=== PATIENT | male | born 1955 | race Caucasian/White ===

== ENCOUNTER 2018-06-25 14:41 | Outpatient (CLI) | payer OTHER ==
--- NOTE | 2018-06-25 15:53 | RAD ---
PORTABLE AP CHEST RADIOGRAPH: Date: 06-25-18 History: Polyarthritis, unspecified. Baseline chest x-ray prior to starting medications to treat arth ritis. Comparison: 09-11-15 FINDINGS: Cardiac silhouette and pulmonary vasculature are within normal limits. The lungs remain clear. Vascul ar calcifications are seen in the thoracic aorta. Calcified mediastinal lymph nodes are again seen. N o other interval change. IMPRESSION: No acute cardiopulmonary process. POS: [facility]
== END 2018-06-25 14:42 | disposition home or self-care (01) ==
LOC: BICRAD 14:41
PROVIDERS: ATTEND Family Medicine
DX: R07.9 Chest pain, unspecified (principal)
CPT/HCPCS: 71045

== ENCOUNTER 2018-10-21 13:12 | Inpatient (IN) | payer OTHER ==
[2018-10-21 13:42] VITALS: BMI 26.4
[2018-10-21] MEDS ORDERED: HYDROcodone/Acetaminophen 5/325 mg Tablet PO PRN ×2 (13:44)
[2018-10-21] MEDS ORDERED: Acetaminophen 325 MG TAB PO PRN (13:44)
[2018-10-21] MEDS ORDERED: Ondansetron PF 4 MG/2 ML Vial IVP PRN (13:45)
[2018-10-21] MEDS ORDERED: Fleet Enema 133 ML BOT FS PRN (13:45)
[2018-10-21 14:03] LABS: #Basophils 0.1 thou/uL (0.0-0.2); #Eosinphils 0.2 thou/uL (0.0-0.7); #Lymphocytes 1.6 thou/uL (1.20-3.40); #Monocytes 0.7 thou/uL (0.11-0.59); #Neutrophils 4.2 thou/uL (1.40-6.50); %Basophils 0.8 % (0.0-1.0); %Eosinophils 2.3 % (0.0-10.0); %Lymphocytes 23.9 % (21.0-51.0); %Monocytes 10.2 % (0.0-10.0); %Neutrophils 62.7 % (42.0-75.0); Hemoglobin 13.6 g/dL (14.0-18.0); Mean Corpuscular HGB CONC 35.1 g/dL (32.0-36.0); Mean Corpuscular Hemoglobin 35.1 pg (27.0-31.0); Mean Corpuscular Volume 99.8 fL (78.0-98.0); Mean Platelet Volume 7.1 fL (7.4-10.4); Platelet Count 280 thou/uL (130-400); RBC Distribution Width 13.2 % (11.5-14.5); Red Blood Cell (RBC) Count 3.89 mill/uL (4.70-6.10); White Blood Cell (WBC) Count 6.7 thou/uL (4.8-10.8)
[2018-10-21 14:22] LABS: Anion Gap 12 mmol/L (10-20); BUN (Urea Nitrogen) 17 mg/dL (8.4-25.7); Calc. Creatinine Clearance 107 mL/min (70-130); Calcium 9.9 mg/dL (7.8-10.44); Carbon Dioxide 25 mmol/L (23-31); Chloride 108 mmol/L (98-107); Estimated GFR-MDRD Greater than 90; Glucose 93 mg/dL (80-115); Sodium 141 mmol/L (136-145)
[2018-10-21 14:26] LABS: Troponin I Less than 0.010 ng/mL (< 0.028)
[2018-10-21 18:19] LABS: Troponin I Less than 0.010 ng/mL (< 0.028)
[2018-10-21] MEDS: cloNIDine 0.1 MG TAB PO PRN (20:00)
[2018-10-21 22:17] LABS: Troponin I Less than 0.010 ng/mL (< 0.028)
[2018-10-21] MEDS ORDERED: Metoprolol Tartrate 50 MG TAB PO SCH (23:00)
[2018-10-22] MEDS: cloNIDine 0.1 MG TAB PO PRN (01:51)
[2018-10-22] MEDS: Sodium Chloride 0.9% 1,000 ML IV SCH ×5 (06:18→21:46)
[2018-10-22] MEDS ORDERED: Fentanyl 100 MCG/2 ML VIAL ONE (07:36)
[2018-10-22] MEDS ORDERED: Midazolam HCl 2 mg/2 ml Vial ONE (07:36)
[2018-10-22] MEDS ORDERED: Heparin 10,000 UNITS/1 ML VIAL ONE (07:58)
[2018-10-22] MEDS ORDERED: TICAGRELOR 90 MG TABLET ONE (08:13)
[2018-10-22] MEDS ORDERED: Nitroglycerin 100MG/250ML BOT 250 ML ONE (08:13)
[2018-10-22] MEDS ORDERED: Iopamidol 370 76% 50 ML VIAL FS ONE (08:48)
[2018-10-22] MEDS ORDERED: Iopamidol 370 76% 100 ML VIAL ONE (08:48)
[2018-10-22] MEDS ORDERED: Nitroglycerin 0.4 MG TAB (25 Tab Bottle) SL PRN (09:00)
[2018-10-22] MEDS ORDERED: Morphine 2 MG/ML SYRINGE SLOW IVP PRN (09:00)
[2018-10-22] MEDS ORDERED: Aspirin 81 mg Enteric Coated Tablet PO SCH (09:15)
[2018-10-22] MEDS ORDERED: hydrALAZINE 20 MG/ML VIAL ONE (10:25)
[2018-10-22] MEDS: TICAGRELOR 90 MG TABLET PO SCH ×2 (12:19→21:41)
[2018-10-22] MEDS ORDERED: Lisinopril 2.5 MG TAB PO SCH (13:00)
[2018-10-22] MEDS ORDERED: hydrALAZINE 20 MG/ML VIAL SLOW IVP PRN (14:03)
[2018-10-22] MEDS ORDERED: Atorvastatin Calcium 20 MG TAB PO SCH (21:00)
[2018-10-23 05:09] LABS: #Eosinphils 0.2 thou/uL (0.0-0.7); #Lymphocytes 1.4 thou/uL (1.20-3.40); #Monocytes 0.7 thou/uL (0.11-0.59); %Basophils 0.6 % (0.0-1.0); %Eosinophils 2.7 % (0.0-10.0); %Lymphocytes 22.4 % (21.0-51.0); %Monocytes 11.2 % (0.0-10.0); %Neutrophils 63.1 % (42.0-75.0); Hemoglobin 12.8 g/dL (14.0-18.0); Mean Corpuscular HGB CONC 34.4 g/dL (32.0-36.0); Mean Corpuscular Hemoglobin 34.8 pg (27.0-31.0); Mean Platelet Volume 7.5 fL (7.4-10.4); Platelet Count 255 thou/uL (130-400); RBC Distribution Width 13.1 % (11.5-14.5); Red Blood Cell (RBC) Count 3.66 mill/uL (4.70-6.10); White Blood Cell (WBC) Count 6.4 thou/uL (4.8-10.8)
[2018-10-23 05:27] LABS: ALT (SGPT) 11 U/L (8-55); AST (SGOT) 11 U/L (5-34); Albumin 3.4 g/dL (3.4-4.8); Alkaline Phosphatase 71 U/L (40-150); Anion Gap 10 mmol/L (10-20); BUN (Urea Nitrogen) 14 mg/dL (8.4-25.7); Bilirubin, Total 0.7 mg/dL (0.2-1.2); Calc. Creatinine Clearance 91 mL/min (70-130); Calcium 9.1 mg/dL (7.8-10.44); Carbon Dioxide 22 mmol/L (23-31); Chloride 110 mmol/L (98-107); Estimated GFR-MDRD 79; Globulin 2.7 g/dL (2.4-3.5); Glucose 97 mg/dL (80-115); Potassium 3.6 mmol/L (3.5-5.1); Protein, Total 6.1 g/dL (5.8-8.1); Sodium 138 mmol/L (136-145)
[2018-10-23] MEDS: TICAGRELOR 90 MG TABLET PO SCH (08:50)
[2018-10-23] MEDS ORDERED: Aspirin 81 mg Enteric Coated Tablet PO SCH (09:00)
[2018-10-23] MEDS ORDERED: OSTEO BI-FLEX PO SCH (09:00)
[2018-10-23] MEDS ORDERED: Lisinopril 2.5 MG TAB PO SCH (09:00)
[2018-10-23 11:58] VITALS: TEMP 98.2
[2018-10-23] MEDS: Sodium Chloride 0.9% 1,000 ML IV SCH ×2 (12:20→12:28)
[2018-10-23 13:09] VITALS: BP 168/62
[2018-10-23] MEDS ORDERED: Carvedilol 3.125 MG TAB PO SCH (17:00)
--- NOTE | 2018-10-23 17:22 | DIS ---
DATE OF ADMISSION: 10/22/2018 DATE OF DISCHARGE: 10/23/2018 PRIMARY DIAGNOSES/DISCHARGE DIAGNOSES: 1. Unstable angina. 2. Coronary artery disease. 3. Peripheral vascular disease. PROCEDURES PERFORMED: 1. Left heart catheterization. 2. Left ventriculogram. 3. Percutaneous coronary angiogram to the left femoral approach. 4. Percutaneous coronary intervention with drug-eluting stent to the right coronary artery. 5. Selective abdominal angiography. 6. Selective left common femoral angiography with runoff. 7. Selective right common femoral angiography with runoffs. HOSPITAL COURSE: Mr. Leonard is a pleasant 63-year-old white gentleman, who comes to the hospital, admitted by Dr. Mulligan from his office for ongoing episodes of chest pain at rest that would wake him up from sleep. He was admitted and planned to do heart catheterization. His symptoms were highly consistent with angina. He was taken to the catheterization lab the next morning and he was found to have severe lesions on his right coronary artery, two spots. He received two drug coated stents. He did very well. He also had abdominal angiography and bilateral lower extremity runoffs. He was found to have severe right SFA disease. He is having claudication in his right leg. He has had previous stenting on bilateral iliacs by Dr. Troncoso in the past. He is doing well. Today, I evaluated him. He denies any chest pain, tightness, or pressure. No other issues. Continues to have pain on the right leg, which will be addressed in the future. Otherwise, he tolerated all his medications without issues. Discharge medications were reviewed with him. He had the same discharge medications except the addition of; 1. Aspirin 81. 2. Atorvastatin 20 mg at bedtime. 3. Carvedilol 3.125 b.i.d. 4. Lisinopril 2.5 mg a day. 5. Brilinta 90 mg b.i.d. 6. Sublingual nitroglycerin p.r.n. for chest pain. 7. Wellbutrin was given as well for smoking cessation. We will follow up with Dr. Mulligan in 2 to 4 weeks. Over 30 minutes was spent at bedside counseling for smoking cessation and for discharge instructions. Dictation. Job ID: [id number]
== END 2018-10-23 15:19 | disposition home or self-care (01) | DRG 247 ==
LOC: 2SW 13:12 → OBSVTOIN 10-22 09:00
PROVIDERS: ADMIT Internal Medicine Cardiovascular Disease; ATTEND Internal Medicine Cardiovascular Disease
PROC: 027035Z Dilation of Coronary Artery, One Artery with Two Drug-eluting Intraluminal Devices, Percutaneous Approach (ICD-10-PCS; principal; 2018-10-22)
PROC: 4A023N7 Measurement of Cardiac Sampling and Pressure, Left Heart, Percutaneous Approach (ICD-10-PCS; 2018-10-22)
PROC: B2111ZZ Fluoroscopy of Multiple Coronary Arteries using Low Osmolar Contrast (ICD-10-PCS; 2018-10-22)
PROC: B2151ZZ Fluoroscopy of Left Heart using Low Osmolar Contrast (ICD-10-PCS; 2018-10-22)
DX: I25.110 Atherosclerotic heart disease of native coronary artery with unstable angina pectoris (principal); K21.9 Gastro-esophageal reflux disease without esophagitis; E78.00 Pure hypercholesterolemia, unspecified; F17.210 Nicotine dependence, cigarettes, uncomplicated
CPT/HCPCS: 36415; 75630; 75716; 80048; 80053; 84484; 85025; 85347; 92928; 92978; 93005; 93010; 93458; 99152; 99153; C1725; C1769; C1874; C1887; C9600; J0360; J1644; J2250; J3010; Q9967

== ENCOUNTER 2018-11-23 06:08 | Day surgery (SDC) | payer OTHER ==
[2018-11-20 12:47] VITALS: BMI 27.3
[2018-11-23 07:15] LABS: Hemoglobin 10.6 g/dL (14.0-18.0)
[2018-11-23 07:29] LABS: Anion Gap 12 mmol/L (10-20); BUN (Urea Nitrogen) 21 mg/dL (8.4-25.7); Calc. Creatinine Clearance 94 mL/min (70-130); Calcium 9.4 mg/dL (7.8-10.44); Carbon Dioxide 26 mmol/L (23-31); Chloride 107 mmol/L (98-107); Estimated GFR-MDRD 82; Glucose 97 mg/dL (80-115); Potassium 3.6 mmol/L (3.5-5.1); Sodium 141 mmol/L (136-145)
[2018-11-23] MEDS ORDERED: Fentanyl 100 MCG/2 ML VIAL ONE (07:51)
[2018-11-23] MEDS ORDERED: Midazolam HCl 2 mg/2 ml Vial ONE (07:51)
[2018-11-23] MEDS ORDERED: Heparin 10,000 UNITS/1 ML VIAL ONE ×2 (08:13→09:15)
[2018-11-23] MEDS ORDERED: Nitroglycerin 100MG/250ML BOT 0 ML ONE (08:14)
[2018-11-23] MEDS ORDERED: Verapamil 5 MG/2 ML VIAL ONE (08:14)
[2018-11-23] MEDS ORDERED: Nitroglycerin 50 MG/250 ML BOT 250 ML ONE (08:16)
[2018-11-23] MEDS ORDERED: hydrALAZINE 20 MG/ML VIAL ONE (09:12)
[2018-11-23] MEDS ORDERED: Iopamidol 370 76% 100 ML VIAL ONE (10:35)
[2018-11-23] MEDS ORDERED: Iopamidol 370 76% 50 ML VIAL FS ONE (10:35)
--- NOTE | 2018-11-23 10:40 | OP ---
DATE OF PROCEDURE: 11/23/2018 PREPROCEDURE DIAGNOSIS: Claudication. POSTPROCEDURE DIAGNOSIS: Severe peripheral vascular disease. PROCEDURE PERFORMED: 1. Aortogram. 2. Bilateral aortofemoral runoff. 3. Successful atherectomy and percutaneous transluminal angioplasty to the right superficial femoral artery with a 1.5 Diamondback classic atherectomy followed by 4.0 x 40 mm Conway balloon catheter. 4. Successful percutaneous transluminal angioplasty stent placement with an 8 x 60 mm Innova stent, postdilated with a 7 x 40 mm Conway balloon catheter. COMPLICATIONS: None. ESTIMATED BLOOD LOSS: Less than 10 mL. TOTAL SEDATION TIME: 1 hour. DESCRIPTION OF PROCEDURE: The patient was draped and prepped in sterile fashion. Access was then obtained in the left femoral artery under ultrasound guidance. Aortogram was performed with a Contra catheter. The catheter was placed successfully in the contralateral segment. The catheter was exchanged for a Erwin catheter given difficulty on placement into the common femoral artery. FINDINGS: Aorta has no significant stenosis present. Right lower extremity - the right common iliac artery has a short stent placed in the mid distal region. There appears to be 70% stenosis in the external iliac artery on right. The common femoral artery is free of significant disease. The SFA has a focal lesion noted in the mid to distal region estimated at 99%. There were three vessel runoff to the foot with diffuse disease present. Left lower extremity - common iliac, external, and common femoral artery have no significant disease. The SFA has less than 50% stenosis. There is a stent present in the common iliac on left. INTERVENTIONAL PROCEDURE: The 5-Bermudian sheath was exchanged for a 6-Bermudian Destination sheath. This was placed with some difficulty into the contralateral segment. The Wholey wire was exchanged for a ViperWire via a Erwin catheter. Heparin was used for anticoagulation. Three passes were performed successfully with the 1.5 Diamondback classic catheter. This was then removed and replaced with a 4 x 40 mm Conway balloon catheter. One inflation performed successfully. There was excellent angiographic result at the end of the study. When assessing the lesion present in the external iliac artery, there was a 40 to 50 mm gradient present. This was felt to be significant. No significant calcification present. A 6 x 20 mm balloon catheter was then placed over the area of interest and inflated to nominal pressure. This was then removed and replaced with an 8 x 60 mm Innova self-expanding stent. It was deployed successfully distally and in the mid region. The proximal portion did not appear deployed. It appeared to be within the tip of the sheath. The sheath was carefully retracted and the proximally portion of the stent was deployed successfully. The catheter was then removed and replaced with a 7 x 40 mm Conway balloon catheter. Multiple inflations in the stented region performed both proximally and distally. A Erwin catheter was placed distally. There was no significant gradient present. There was excellent angiographic result at the end of the study with excellent distal flow. Job ID: [id number] [facility]
== END 2018-11-23 16:18 | disposition home or self-care (01) ==
LOC: CCL 06:08
PROVIDERS: ATTEND Internal Medicine Cardiovascular Disease
PROC: 047K3DZ Dilation of Right Femoral Artery with Intraluminal Device, Percutaneous Approach (ICD-10-PCS; principal; 2018-11-23)
DX: I70.213 Atherosclerosis of native arteries of extremities with intermittent claudication, bilateral legs (principal); I25.10 Atherosclerotic heart disease of native coronary artery without angina pectoris; K58.9 Irritable bowel syndrome, unspecified; K21.9 Gastro-esophageal reflux disease without esophagitis; E78.5 Hyperlipidemia, unspecified; Z87.891 Personal history of nicotine dependence; Z79.02 Long term (current) use of antithrombotics/antiplatelets; Z79.82 Long term (current) use of aspirin; Z79.899 Other long term (current) drug therapy; Z88.1 Allergy status to other antibiotic agents; Z95.5 Presence of coronary angioplasty implant and graft
CPT/HCPCS: 37221; 37225; 76942; 80048; 85014; 85018; 85347; 99152; 99153; C1724; C1725; C1769; C1887; J0360; J1644; J2250; J3010; Q9967

== ENCOUNTER 2019-06-29 21:02 | Emergency (ER) | payer OTHER ==
[~2019-06-29 21:02] MED LIST: Iopamidol-370 76% 500 ML 1 ML ONE
[2019-06-29 22:03] LABS: PTT 28.7 SEC (22.9-36.1); Prothrombin Time 12.6 SEC (12.0-14.7)
[2019-06-29 22:45] LABS: ALT (SGPT) 18 U/L (8-55); AST (SGOT) 14 U/L (5-34); Albumin 4.3 g/dL (3.4-4.8); Alkaline Phosphatase 82 U/L (40-110); Anion Gap 13 mmol/L (10-20); BUN (Urea Nitrogen) 23 mg/dL (8.4-25.7); Bilirubin, Total 0.8 mg/dL (0.2-1.2); Calc. Creatinine Clearance 0 mL/min (70-130); Calcium 9.5 mg/dL (7.8-10.44); Carbon Dioxide 26 mmol/L (23-31); Chloride 102 mmol/L (98-107); Estimated GFR-MDRD 53; Globulin 3.1 g/dL (2.4-3.5); Glucose 121 mg/dL (80-115); Potassium 3.3 mmol/L (3.5-5.1); Protein, Total 7.4 g/dL (5.8-8.1); Sodium 138 mmol/L (136-145)
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
[2019-06-29] MEDS ORDERED: HYDROcodone/Acetaminophen 10/325 mg Tablet ONE (23:50)
== END 2019-06-29 23:58 | disposition home or self-care (01) ==
LOC: ERS 21:02
DX: R10.31 Right lower quadrant pain (principal); E78.5 Hyperlipidemia, unspecified; I10 Essential (primary) hypertension; Z87.891 Personal history of nicotine dependence; Z79.82 Long term (current) use of aspirin; Z79.01 Long term (current) use of anticoagulants; Z79.899 Other long term (current) drug therapy; Z79.52 Long term (current) use of systemic steroids; Z95.5 Presence of coronary angioplasty implant and graft
CPT/HCPCS: 74177; 80053; 85610; 85730; Q9967

== ENCOUNTER 2023-02-07 11:49 | Observation (INO) | payer MEDICARE ==
[~2023-02-07 11:49] MED LIST changes: -Iopamidol-370 76% 500 ML 1 ML ONE; +Iopamidol-370 76% 500 ML MDV (1 ML CHARGE) ONE
[2023-02-07 12:42] VITALS: BMI 30.4
[2023-02-07] MEDS ORDERED: Nicotine 14 MG PATCH TD PRN (14:44)
[2023-02-07] MEDS ORDERED: Acetaminophen 325 MG TAB PO PRN (15:09)
[2023-02-07 16:36] LABS: #Eosinphils 0.1 thou/uL (0.0-0.7); #Monocytes 1.1 thou/uL (0.11-0.59); #Neutrophils 6.4 thou/uL (1.40-6.50); %Basophils 0.5 % (0.0-1.0); %Eosinophils 0.8 % (0.0-10.0); %Lymphocytes 10.9 % (21.0-51.0); %Monocytes 12.5 % (0.0-10.0); %Neutrophils 74.5 % (42.0-75.0); Hematocrit 43.2 % (42.0-52.0); Hemoglobin 14.9 g/dL (14.0-18.0); Mean Corpuscular HGB CONC 34.5 g/dL (32.0-36.0); Mean Corpuscular Hemoglobin 35.1 pg (27.0-31.0); Mean Corpuscular Volume 101.6 fl (78.0-98.0); Mean Platelet Volume 9.1 fL (7.4-10.4); Platelet Count 216 10x3/uL (130-400); Red Blood Cell (RBC) Count 4.25 mill/uL (4.70-6.10); White Blood Cell (WBC) Count 8.6 10x3/uL (4.8-10.8)
[2023-02-07 16:59] LABS: ALT (SGPT) 13 U/L (8-55); AST (SGOT) 17 U/L (5-34); Albumin 3.9 g/dL (3.4-4.8); Alkaline Phosphatase 70 U/L (40-110); Anion Gap 14 mmol/L (10-20); BUN (Urea Nitrogen) 10 mg/dL (8.4-25.7); BUN/Creatinine Ratio 9.26; Bilirubin, Total 0.8 mg/dL (0.2-1.2); Calc. Creatinine Clearance 85 mL/min (70-130); Calcium 8.8 mg/dL (7.8-10.44); Carbon Dioxide 20 mmol/L (23-31); Chloride 102 mmol/L (98-107); Estimated GFR 75; Globulin 3.2 g/dL (2.4-3.5); Glucose 90 mg/dL (80-115); Phosphorus 2.9 mg/dL (2.3-4.7); Potassium 3.8 mmol/L (3.5-5.1); Protein, Total 7.1 g/dL (5.8-8.1); Sodium 132 mmol/L (136-145)
[2023-02-07] MEDS ORDERED: Losartan 25 MG TAB PO SCH (17:45)
[2023-02-07] MEDS ORDERED: Rosuvastatin 20 MG TAB PO SCH (21:00)
[2023-02-08 06:46] LABS: #Eosinphils 0.2 thou/uL (0.0-0.7); #Neutrophils 5.1 thou/uL (1.40-6.50); %Basophils 0.4 % (0.0-1.0); %Eosinophils 2.5 % (0.0-10.0); %Lymphocytes 11.2 % (21.0-51.0); %Monocytes 13.8 % (0.0-10.0); %Neutrophils 71.4 % (42.0-75.0); Hematocrit 38.9 % (42.0-52.0); Hemoglobin 13.3 g/dL (14.0-18.0); Mean Corpuscular HGB CONC 34.2 g/dL (32.0-36.0); Mean Corpuscular Hemoglobin 34.5 pg (27.0-31.0); Mean Corpuscular Volume 100.8 fl (78.0-98.0); Mean Platelet Volume 9.5 fL (7.4-10.4); Platelet Count 226 10x3/uL (130-400); RBC Distribution Width 16.9 % (11.5-14.5); Red Blood Cell (RBC) Count 3.86 mill/uL (4.70-6.10); White Blood Cell (WBC) Count 7.2 10x3/uL (4.8-10.8)
[2023-02-08 07:07] LABS: Anion Gap 12 mmol/L (10-20); BUN (Urea Nitrogen) 9 mg/dL (8.4-25.7); Calc. Creatinine Clearance 91 mL/min (70-130); Calcium 8.7 mg/dL (7.8-10.44); Carbon Dioxide 24 mmol/L (23-31); Chloride 101 mmol/L (98-107); Estimated GFR 82; Glucose 101 mg/dL (80-115); Potassium 3.5 mmol/L (3.5-5.1); Sodium 133 mmol/L (136-145)
[2023-02-08 08:03] VITALS: TEMP 98.4
[2023-02-08] MEDS ORDERED: Sodium Chloride 0.9% 500 ML IV SCH (08:15)
[2023-02-08] MEDS ORDERED: Losartan 25 MG TAB PO SCH (09:00)
[2023-02-08] MEDS ORDERED: cefTRIAXone\\ROCEPHIN 1 GM in Sodium Chloride 0.9% 100 ML IVPB SCH (09:00)
[2023-02-08] MEDS ORDERED: Azithromycin 500 MG in Sodium Chloride 0.9% 250 ML 250 ML IVPB SCH (09:00)
[2023-02-08] MEDS ORDERED: Tamsulosin HCl 0.4 MG CAP PO SCH (09:00)
[2023-02-08] MEDS ORDERED: Aspirin Chewable 81 MG TAB PO SCH (09:00)
[2023-02-08] MEDS ORDERED: Hydrochlorothiazide 25 MG TAB PO SCH (09:00)
[2023-02-08 11:59] VITALS: BP 165/79
== END 2023-02-08 17:42 | disposition home or self-care (01) ==
LOC: T4-A 12:36
PROVIDERS: ADMIT Internal Medicine; ATTEND Internal Medicine
DX: R50.9 Fever, unspecified (principal); I25.10 Atherosclerotic heart disease of native coronary artery without angina pectoris; I73.9 Peripheral vascular disease, unspecified; G47.33 Obstructive sleep apnea (adult) (pediatric); I10 Essential (primary) hypertension; E78.5 Hyperlipidemia, unspecified; J43.9 Emphysema, unspecified; J21.9 Acute bronchiolitis, unspecified; Z88.1 Allergy status to other antibiotic agents; Z98.890 Other specified postprocedural states; Z79.82 Long term (current) use of aspirin; Z79.899 Other long term (current) drug therapy
CPT/HCPCS: 70486; 70491; 71260; 80048; 80053; 80069; 85025 ×2; 85652; 86140; 96374; 96375; G0378 ×2; J0456; 36415; J0696; J3490; J7030; J7050; Q9967

== ENCOUNTER 2023-04-22 14:32 | Outpatient (CLI) | payer MEDICARE ==
[2023-04-22 16:03] LABS: Hematocrit 41.2 % (38.8-50.0); Hemoglobin 13.9 g/dL (13.5-17.5); Mean Corpuscular HGB CONC 33.7 g/dL (32.0-36.0); Mean Corpuscular Hemoglobin 33.7 pg (27.0-33.0); Mean Corpuscular Volume 99.8 fl (81.2-95.1); Mean Platelet Volume 9.6 fl (7.4-10.4); Platelet Count 266 10x3/uL (150-450); RBC Distribution Width 15.6 % (11.5-14.5); Red Blood Cell (RBC) Count 4.13 10x6/uL (4.32-5.72); White Blood Cell (WBC) Count 8.6 10x3/uL (3.5-10.5)
[2023-04-22 16:11] LABS: Anion Gap 16 mmol/L (10-20); BUN (Urea Nitrogen) 15 mg/dL (8.4-25.7); Calc. Creatinine Clearance 0 mL/min (70-130); Calcium 9.3 mg/dL (7.8-10.44); Carbon Dioxide 23 mmol/L (23-31); Chloride 104 mmol/L (98-107); Estimated GFR 60; Glucose 169 mg/dL (80-115); Potassium 3.5 mmol/L (3.5-5.1); Sodium 139 mmol/L (136-145)
== END 2023-04-22 14:33 | disposition home or self-care (01) ==
LOC: LABBT 14:32
PROVIDERS: ATTEND Otolaryngology Plastic Surgery within the Head & Neck
DX: Z01.818 Encounter for other preprocedural examination (principal); J32.0 Chronic maxillary sinusitis; J32.1 Chronic frontal sinusitis; J32.2 Chronic ethmoidal sinusitis; J34.3 Hypertrophy of nasal turbinates; J34.2 Deviated nasal septum
CPT/HCPCS: 80048; 85027; 93005; 93010

== ENCOUNTER 2023-04-23 07:41 | Day surgery (SDC) | payer MEDICARE ==
[2023-04-22 15:14] VITALS: BMI 30.4
[2023-04-23] MEDS ORDERED: Oxymetazoline HCl 0.05% (30 ML BOT) ONE (08:24)
[2023-04-23] MEDS ORDERED: Lidocaine 1% (PF) 30 ML VIAL ONE (09:12)
[2023-04-23] MEDS ORDERED: Famotidine/PF 20 mg/2ml Vial ONE (09:54)
[2023-04-23] MEDS ORDERED: fentaNYL PF 100 MCG/2 ML SYRINGE ONE (09:54)
[2023-04-23] MEDS ORDERED: fentaNYL 50 mcg/mL 1 mL Vial ONE (09:54)
[2023-04-23] MEDS ORDERED: Glycopyrrolate 0.2 MG/ML 5 ML SYRINGE ONE (10:14)
[2023-04-23] MEDS ORDERED: Dexamethasone 20 MG/5 ML VIAL ONE (10:14)
[2023-04-23] MEDS ORDERED: PROPOFOL 200 MG/20 ML VIAL ONE (10:14)
[2023-04-23] MEDS ORDERED: Metoprolol Tartrate 5 MG/5 ML VIAL ONE (10:14)
[2023-04-23] MEDS ORDERED: PHENYLEPHRINE-NS 100 MCG/ML 10 ML SYRINGE ONE (10:14)
[2023-04-23] MEDS ORDERED: Lidocaine 1% PF 5 ML VIAL ONE (10:14)
[2023-04-23] MEDS ORDERED: Succinylcholine 200 MG/10 ml SYRINGE FS ONE (10:14)
[2023-04-23] MEDS ORDERED: Ketorolac Tromethamine 30 MG/ML VIAL ONE (10:14)
[2023-04-23] MEDS ORDERED: Ondansetron PF 4 MG/2 ML Vial ONE (10:14)
[2023-04-23] MEDS ORDERED: methylPREDNISolone Acetate 40 mg/ml Vial ONE (10:41)
== END 2023-04-23 14:48 | disposition home or self-care (01) ==
LOC: SDC 07:41
PROVIDERS: ATTEND Otolaryngology Plastic Surgery within the Head & Neck
PROC: 09BV8ZZ Excision of Left Ethmoid Sinus, Via Natural or Artificial Opening Endoscopic (ICD-10-PCS; principal; 2023-04-23)
PROC: 09BQ8ZZ Excision of Right Maxillary Sinus, Via Natural or Artificial Opening Endoscopic (ICD-10-PCS; 2023-04-23)
PROC: 09BR8ZZ Excision of Left Maxillary Sinus, Via Natural or Artificial Opening Endoscopic (ICD-10-PCS; 2023-04-23)
PROC: 09BS8ZZ Excision of Right Frontal Sinus, Via Natural or Artificial Opening Endoscopic (ICD-10-PCS; 2023-04-23)
PROC: 09BT8ZZ Excision of Left Frontal Sinus, Via Natural or Artificial Opening Endoscopic (ICD-10-PCS; 2023-04-23)
PROC: 09BU8ZZ Excision of Right Ethmoid Sinus, Via Natural or Artificial Opening Endoscopic (ICD-10-PCS; 2023-04-23)
PROC: 09BL8ZZ Excision of Nasal Turbinate, Via Natural or Artificial Opening Endoscopic (ICD-10-PCS; 2023-04-23)
PROC: 09BL8ZZ Excision of Nasal Turbinate, Via Natural or Artificial Opening Endoscopic (ICD-10-PCS; 2023-04-23)
PROC: 0CBN0ZZ Excision of Uvula, Open Approach (ICD-10-PCS; 2023-04-23)
DX: J34.2 Deviated nasal septum (principal); J34.3 Hypertrophy of nasal turbinates; J32.8 Other chronic sinusitis; D10.39 Benign neoplasm of other parts of mouth; K13.79 Other lesions of oral mucosa; I10 Essential (primary) hypertension; E78.00 Pure hypercholesterolemia, unspecified; Z88.1 Allergy status to other antibiotic agents; M19.90 Unspecified osteoarthritis, unspecified site; Z79.899 Other long term (current) drug therapy
CPT/HCPCS: 30140; 31240; 31253; 31256; 42140; J3010; 88302; J1030; J2001; S0028

== ENCOUNTER 2023-07-15 16:00 | Outpatient (CLI) | payer MEDICARE | END 2023-07-15 16:01 | disposition home or self-care (01) | LOC: SLEEPLAB 16:00 | PROVIDERS: ATTEND Internal Medicine Critical Care Medicine | DX: G47.33 Obstructive sleep apnea (adult) (pediatric) (principal); I51.89 Other ill-defined heart diseases; R09.89 Other specified symptoms and signs involving the circulatory and respiratory systems; R53.83 Other fatigue; G47.10 Hypersomnia, unspecified | CPT/HCPCS: 95800 ==

== ENCOUNTER 2024-02-20 10:12 | Outpatient (CLI) | payer MEDICARE | END 2024-02-20 10:13 | disposition home or self-care (01) | LOC: RAD 10:12 | PROVIDERS: ATTEND Internal Medicine Critical Care Medicine | DX: R06.00 Dyspnea, unspecified (principal); I51.7 Cardiomegaly; J98.4 Other disorders of lung | CPT/HCPCS: 71046 ==

== ENCOUNTER 2024-06-09 07:45 | Day surgery (SDC) | payer MEDICARE | END 2024-06-09 08:45 | disposition home or self-care (01) | LOC: ULT 07:45 | PROVIDERS: ATTEND Physician Assistant Medical | DX: R14.0 Abdominal distension (gaseous) (principal); Z53.9 Procedure and treatment not carried out, unspecified reason; F10.90 Alcohol use, unspecified, uncomplicated; K21.9 Gastro-esophageal reflux disease without esophagitis; J44.9 Chronic obstructive pulmonary disease, unspecified; I11.0 Hypertensive heart disease with heart failure; I50.32 Chronic diastolic (congestive) heart failure; I73.9 Peripheral vascular disease, unspecified; I25.10 Atherosclerotic heart disease of native coronary artery without angina pectoris; F17.210 Nicotine dependence, cigarettes, uncomplicated; R63.5 Abnormal weight gain; E78.00 Pure hypercholesterolemia, unspecified; K42.9 Umbilical hernia without obstruction or gangrene; Z86.0100 Personal history of colon polyps, unspecified; Z79.82 Long term (current) use of aspirin; Z79.899 Other long term (current) drug therapy | CPT/HCPCS: 76705 ==

== ENCOUNTER 2024-06-28 13:56 | Outpatient (CLI) | payer MEDICARE, BC ==
[~2024-06-28 13:56] MED LIST changes: -Iopamidol-370 76% 500 ML MDV (1 ML CHARGE) ONE; +Magnevist 469MG/ML 20 ML VIAL ONE
== END 2024-06-28 13:57 | disposition home or self-care (01) ==
LOC: MRI 13:56
PROVIDERS: ATTEND Internal Medicine Gastroenterology
DX: R14.0 Abdominal distension (gaseous) (principal); D64.9 Anemia, unspecified; F10.90 Alcohol use, unspecified, uncomplicated; K76.0 Fatty (change of) liver, not elsewhere classified
CPT/HCPCS: 36415; 74183; 82565

== ENCOUNTER 2024-08-04 05:43 | Day surgery (SDC) | payer MEDICARE, BC ==
[2024-08-03 13:52] VITALS: BMI 30.4
[2024-08-04] MEDS ORDERED: PROPOFOL 40 ML ONE (07:07)
[2024-08-04] MEDS ORDERED: Lidocaine 1% PF 5 ML VIAL ONE (07:09)
[2024-08-04] MEDS ORDERED: Glycopyrrolate 0.2 MG/ML 5 ML SYRINGE ONE (08:22)
== END 2024-08-04 10:40 | disposition home or self-care (01) ==
LOC: SDC 05:43
PROVIDERS: ATTEND Internal Medicine Gastroenterology
PROC: 0DB98ZX Excision of Duodenum, Via Natural or Artificial Opening Endoscopic, Diagnostic (ICD-10-PCS; principal; 2024-08-04)
PROC: 0DBE8ZX Excision of Large Intestine, Via Natural or Artificial Opening Endoscopic, Diagnostic (ICD-10-PCS; 2024-08-04)
PROC: 0DB48ZX Excision of Esophagogastric Junction, Via Natural or Artificial Opening Endoscopic, Diagnostic (ICD-10-PCS; 2024-08-04)
PROC: 0DB68ZX Excision of Stomach, Via Natural or Artificial Opening Endoscopic, Diagnostic (ICD-10-PCS; 2024-08-04)
DX: K21.00 Gastro-esophageal reflux disease with esophagitis, without bleeding (principal); K29.70 Gastritis, unspecified, without bleeding; K31.A0 Gastric intestinal metaplasia, unspecified; K31.89 Other diseases of stomach and duodenum; K57.30 Diverticulosis of large intestine without perforation or abscess without bleeding; K70.0 Alcoholic fatty liver; I11.0 Hypertensive heart disease with heart failure; I50.30 Unspecified diastolic (congestive) heart failure; I25.10 Atherosclerotic heart disease of native coronary artery without angina pectoris; I73.9 Peripheral vascular disease, unspecified; J44.9 Chronic obstructive pulmonary disease, unspecified; E78.00 Pure hypercholesterolemia, unspecified; F10.90 Alcohol use, unspecified, uncomplicated; F17.210 Nicotine dependence, cigarettes, uncomplicated; G47.30 Sleep apnea, unspecified; M19.90 Unspecified osteoarthritis, unspecified site; Y90.9 Presence of alcohol in blood, level not specified; Z95.5 Presence of coronary angioplasty implant and graft; Z86.0100 Personal history of colon polyps, unspecified; Z88.1 Allergy status to other antibiotic agents; Z79.02 Long term (current) use of antithrombotics/antiplatelets; Z79.82 Long term (current) use of aspirin; Z79.899 Other long term (current) drug therapy
CPT/HCPCS: 43239; 45380; J2704; 88305

== ENCOUNTER 2024-08-26 14:45 | Outpatient (CLI) | payer MEDICARE, BC | END 2024-08-26 14:46 | disposition home or self-care (01) | LOC: BICCT 14:45 | PROVIDERS: ATTEND Internal Medicine Gastroenterology | DX: K22.70 Barrett's esophagus without dysplasia (principal); K42.9 Umbilical hernia without obstruction or gangrene; K70.0 Alcoholic fatty liver; R19.07 Generalized intra-abdominal and pelvic swelling, mass and lump; F10.90 Alcohol use, unspecified, uncomplicated; K21.9 Gastro-esophageal reflux disease without esophagitis; Z86.0100 Personal history of colon polyps, unspecified; I70.8 Atherosclerosis of other arteries | CPT/HCPCS: 36415; 74177; 82565 ==

== ENCOUNTER 2025-02-04 13:22 | Outpatient (CLI) | payer MEDICARE, BC ==
[2025-02-04 14:40] LABS: #Basophils Less than 0.03 10x3/uL (0.0-0.2); #Eosinophils 0.05 10x3/uL (0.0-0.7); #Monocytes 0.42 10x3/uL (0.11-0.59); #Neutrophils 5.96 10x3/uL (1.40-6.50); %Basophils 0.3 % (0.0-1.0); %Eosinophils 0.7 % (0.0-10.0); %Lymphocytes 9.0 % (21.0-51.0); %Monocytes 5.8 % (0.0-10.0); %Neutrophils 82.4 % (42.0-75.0); Hematocrit 35.0 % (42.0-52.0); Hemoglobin 11.7 g/dL (14.0-18.0); Mean Corpuscular Hemoglobin 34.5 pg (27.0-31.0); Mean Corpuscular Volume 103.2 fL (78.0-98.0); Platelet Count 247 10x3/uL (130-400); Red Blood Cell (RBC) Count 3.39 mill/uL (4.70-6.10); White Blood Cell (WBC) Count 7.23 10x3/uL (4.8-10.8)
[2025-02-04 15:10] LABS: Anion Gap 17 mmol/L (10-20); BUN (Urea Nitrogen) 21 mg/dL (8.4-25.7); Calc. Creatinine Clearance 0 mL/min (70-130); Calcium 9.0 mg/dL (7.8-10.44); Carbon Dioxide 22 mmol/L (23-31); Chloride 104 mmol/L (98-107); Glucose 157 mg/dL (80-115); Potassium 4.2 mmol/L (3.5-5.1); Sodium 139 mmol/L (136-145)
== END 2025-02-04 13:23 | disposition home or self-care (01) ==
LOC: LABBT 13:22
PROVIDERS: ATTEND Neurological Surgery
DX: Z01.818 Encounter for other preprocedural examination (principal); M71.38 Other bursal cyst, other site; M48.061 Spinal stenosis, lumbar region without neurogenic claudication
CPT/HCPCS: 80048; 85025; 93005; 93010

== ENCOUNTER 2025-02-11 06:20 | Day surgery (SDC) | payer MEDICARE, BC ==
[2025-02-04 14:02] VITALS: BMI 33.1
[2025-02-11] MEDS ORDERED: Thrombin 5000 UNITS/5 ML VIAL ONE (06:28)
[2025-02-11] MEDS ORDERED: Rocuronium Bromide 10 MG/ML (10ML VIAL) ONE (06:56)
[2025-02-11] MEDS ORDERED: PROPOFOL 20 ML ONE (06:56)
[2025-02-11] MEDS ORDERED: Lidocaine 1% PF 5 ML VIAL ONE (06:56)
[2025-02-11] MEDS ORDERED: CEFAZOLIN 2 GM VIAL ONE ×2 (07:13→13:31)
[2025-02-11] MEDS ORDERED: fentaNYL PF 100 MCG/2 ML SYRINGE ONE ×2 (08:03→11:34)
[2025-02-11] MEDS ORDERED: Albuterol HFA (OR) 200 PUFF INH ONE (08:18)
[2025-02-11] MEDS ORDERED: PHENYLEPHRINE-NS 100 MCG/ML 10 ML SYRINGE ONE ×2 (08:29→09:20)
[2025-02-11] MEDS ORDERED: Ondansetron PF 4 MG/2 ML Vial ONE (09:06)
[2025-02-11] MEDS ORDERED: Phenylephrine 40 MG/NS 250 ML 250 ML ONE (09:25)
[2025-02-11] MEDS ORDERED: Phenylephrine 40 MG/NS 250 ML 0 ML ONE (09:25)
[2025-02-11] MEDS ORDERED: SUGAMMADEX SODIUM 200 MG/2 ML VIAL ONE (10:17)
[2025-02-11] MEDS ORDERED: HYDROcodone/Acetaminophen 5/325 mg Tablet ONE (14:00)
== END 2025-02-11 14:35 | disposition home or self-care (01) ==
LOC: SDC 06:20
PROVIDERS: ATTEND Neurological Surgery
PROC: 0SG00AJ Fusion of Lumbar Vertebral Joint with Interbody Fusion Device, Posterior Approach, Anterior Column, Open Approach (ICD-10-PCS; principal; 2025-02-11)
DX: M48.061 Spinal stenosis, lumbar region without neurogenic claudication (principal); M54.16 Radiculopathy, lumbar region; M71.38 Other bursal cyst, other site; G47.33 Obstructive sleep apnea (adult) (pediatric); I10 Essential (primary) hypertension; E78.5 Hyperlipidemia, unspecified; I25.10 Atherosclerotic heart disease of native coronary artery without angina pectoris; N40.0 Benign prostatic hyperplasia without lower urinary tract symptoms; J44.9 Chronic obstructive pulmonary disease, unspecified; K21.9 Gastro-esophageal reflux disease without esophagitis; Z79.82 Long term (current) use of aspirin; Z79.02 Long term (current) use of antithrombotics/antiplatelets; Z79.899 Other long term (current) drug therapy
CPT/HCPCS: 20930; 20936; 22612; 22853; 63267; 94660; C1713 ×2; C1889 ×3; J0169; J0665; J1100; J2405; J2704; J3010

== ENCOUNTER 2025-03-25 12:49 | Outpatient (CLI) | payer MEDICARE, BC ==
[2025-03-25 13:30] LABS: Estimated GFR - POC 33.0
[2025-03-25] MEDS ORDERED: Iopamidol-370 76% 500 ML MDV (1 ML CHARGE) ONE (13:55)
== END 2025-03-25 12:50 | disposition home or self-care (01) ==
LOC: CT 12:49
DX: I73.9 Peripheral vascular disease, unspecified (principal); R14.0 Abdominal distension (gaseous); R09.89 Other specified symptoms and signs involving the circulatory and respiratory systems; K76.0 Fatty (change of) liver, not elsewhere classified; I70.0 Atherosclerosis of aorta; I35.0 Nonrheumatic aortic (valve) stenosis
CPT/HCPCS: 36415; 75635; 82565; Q9967

== ENCOUNTER 2025-04-12 10:40 | Outpatient (CLI) | payer MEDICARE, BC | END 2025-04-12 10:41 | disposition home or self-care (01) | LOC: RAD 10:40 | PROVIDERS: ATTEND Internal Medicine Critical Care Medicine | DX: R06.00 Dyspnea, unspecified (principal) | CPT/HCPCS: 71046 ==